=== PATIENT | male | born 1970 | race Caucasian/White ===

== ENCOUNTER → 2021-04-01 | Outpatient (CLI) | payer BC ==
--- NOTE | 2021-04-01 14:21 | KCIC ---
EXAM: Left knee, 3 views. HISTORY: Knee effusion. COMPARISON: None. FINDINGS: 3 views left knee are obtained. There is medial compartment joint space narrowing, subchond ral sclerosis and spurring. There is a small joint effusion. IMPRESSION: Mild medial compartment osteoarthritis of the left knee with small joint effusion. Electronically signed by: Mary Reid MD (04/01/2021 2:19 PM) [id number]
== END ==
LOC: KCIC 13:42
PROVIDERS: ATTEND Family Medicine
DX: M17.12 Unilateral primary osteoarthritis, left knee (principal); M25.462 Effusion, left knee; M76.892 Other specified enthesopathies of left lower limb, excluding foot; M25.862 Other specified joint disorders, left knee
CPT/HCPCS: 73562